=== PATIENT | male | born 1940 | race Caucasian/White ===

== ENCOUNTER 2017-10-21 10:00 | Outpatient (CLI) | payer MEDICARE, SELFPAY | END 2017-10-21 10:01 | PROVIDERS: PCP Internal Medicine; Visit Provider Urology | DX: C61 Malignant neoplasm of prostate (principal); C79.51 Secondary malignant neoplasm of bone | CPT/HCPCS: 96401; 99211; J0897 ==

== ENCOUNTER → 2017-11-18 14:00 | Outpatient (BNVA) | payer MEDICARE, SELFPAY | PROVIDERS: Visit Provider Urology | DX: C61 Malignant neoplasm of prostate (principal); C79.51 Secondary malignant neoplasm of bone | CPT/HCPCS: 96401; J0897 ==

== ENCOUNTER 2017-12-22 10:04 | Outpatient (BNVA) | payer MEDICARE, SELFPAY | END 2017-12-22 10:05 | PROVIDERS: Visit Provider Nurse Practitioner Gerontology | DX: C61 Malignant neoplasm of prostate (principal); C79.51 Secondary malignant neoplasm of bone | CPT/HCPCS: 96401; 96402; 99213; J0897; J9217 ==

== ENCOUNTER → 2018-01-24 10:25 | Outpatient (BNVA) | payer MEDICARE, SELFPAY | PROVIDERS: PCP Internal Medicine; Visit Provider Nurse Practitioner Gerontology | DX: C61 Malignant neoplasm of prostate (principal); C79.51 Secondary malignant neoplasm of bone; R97.20 Elevated prostate specific antigen [PSA] | CPT/HCPCS: 96401; 99213; J0897 ==

== ENCOUNTER 2018-01-24 10:47 | Outpatient (CLI) | payer MEDICARE, SELFPAY ==
[2018-01-25 10:15] LABS: PSA, Diagnostic 4.5 ng/ml (0-6.5)
== END 2018-01-24 11:07 ==
PROVIDERS: PCP Internal Medicine; Visit Provider Nurse Practitioner Gerontology
DX: C61 Malignant neoplasm of prostate (principal); C79.51 Secondary malignant neoplasm of bone; R97.20 Elevated prostate specific antigen [PSA]
CPT/HCPCS: 36415; 96401; 99213; J0897; 84153

== ENCOUNTER → 2018-02-21 11:22 | Outpatient (BNVA) | payer MEDICARE, SELFPAY | PROVIDERS: PCP Internal Medicine; Visit Provider Nurse Practitioner Gerontology | DX: C61 Malignant neoplasm of prostate (principal); C79.51 Secondary malignant neoplasm of bone | CPT/HCPCS: 96401; 99213; J0897 ==

== ENCOUNTER → 2018-03-27 09:14 | Outpatient (BNVA) | payer MEDICARE, SELFPAY | PROVIDERS: PCP Internal Medicine; Visit Provider Nurse Practitioner Gerontology | DX: C61 Malignant neoplasm of prostate (principal); C79.51 Secondary malignant neoplasm of bone | CPT/HCPCS: 96401; 96402; 99213; J0897; J9217 ==

== ENCOUNTER → 2018-04-27 10:15 | Outpatient (BNVA) | payer MEDICARE, SELFPAY | PROVIDERS: PCP Internal Medicine; Visit Provider Nurse Practitioner Gerontology | DX: R69 Illness, unspecified (principal) ==

== ENCOUNTER 2018-04-27 11:27 | Outpatient (CLI) | payer MEDICARE, MEDICAID, SELFPAY ==
[2018-04-27 12:11] LABS: HGB 14.2 g/dL (13.5-17.5); Mean Corpuscular Hemoglobin 29.2 pg (27.0-33.0); Mean Corpuscular Volume 88.3 fL (80-95); Mean Platelet Volume 9.4 fL (8.0-11.0); Platelet Count 226 x1000/uL (130-400); RBC 4.87 m/cumm (4.50-6.00); RBC Distribution Width 14.1 % (11.8-14.1); White Blood Cell Count 5.51 k/cumm (4.4-10.8)
[2018-04-27 12:52] LABS: ALT 81 U/L (12-78); AST 57 U/L (15-37); Albumin 3.4 g/dL (3.4-5.0); Alkaline Phosphatase 75 U/L (46-116); Anion Gap 7.2 mmol/L (3-11); BUN 17 mg/dL (7-18); Bilirubin, Total 0.6 mg/dL (0.2-1.0); CO2 28.8 mmol/L (21.0-32.0); CREATININE 0.77 mg/dL (0.70-1.30); Calcium 8.9 mg/dL (8.5-10.1); Chloride 108 mmol/L (98-107); Glucose 99 mg/dL (70-100); Magnesium 2.1 mg/dL (1.8-2.4); Potassium 4.3 mmol/L (3.5-5.1); Sodium 144 mmol/L (136-145); Total Protein 6.7 g/dL (6.4-8.2)
[2018-04-28 09:09] LABS: PSA, Diagnostic 7.8 ng/ml (0-6.5)
[2018-04-30 15:36] LABS: Testosterone, Free 0.11 ng/dL (2.88-10.5); Testosterone, Total 9.8 ng/dL (240-950)
== END 2018-04-27 11:47 ==
PROVIDERS: PCP Internal Medicine; Visit Provider Urology
DX: C61 Malignant neoplasm of prostate (principal); C79.51 Secondary malignant neoplasm of bone
CPT/HCPCS: 36415; 80053; 84402; 84403; 85027; 99214; 83735; 84153

== ENCOUNTER 2018-05-10 09:04 | Outpatient (CLI) | payer MEDICARE, SELFPAY ==
--- NOTE | 2018-05-10 10:35 | MERGE_ITS ---
*[facility]* *[facility]* [address] [place] [address] Date of study: 05/10/2018 Transthoracic Echocardiography M-mode, complete 2D, complete spectral Doppler, and color Doppler *STUDY CONCLUSIONS* Summary: 1. Left ventricle: The cavity size was normal. Wall thickness was increased in a pattern of moderate LVH. Systolic function was normal. The estimated ejection fraction was 60-65%. Some parameters suggest diastolic dysfunction. There was no evidence of elevated ventricular filling pressure by Doppler parameters. 2. Aortic valve: There was mild regurgitation. 3. Mitral valve: There was mild regurgitation. 4. Left atrium: The atrium was moderately dilated. 5. Right ventricle: The cavity size was normal. Wall thickness was normal. Systolic function was normal. 6. Right atrium: The atrium was moderately dilated. 7. Atrial septum: No defect or patent foramen ovale was identified. 8. Pulmonary arteries: Pulmonary systolic pressure was in the range of 30mm Hg to 40mm Hg. 9. Inferior vena cava: The vessel was patent and normal in size. The respirophasic diameter changes were in the normal range (greater than or equal to 50%), consistent with normal central venous pressure. *PATIENT PRESENTATION* Height: 175.3cm ((69in) ) S/D Pressure: 167 / 59 Weight: 109.8kg ((241.5lb) ) BSA: 2.35m^2 Test start time: 10:40 AM. Test stop time: 11:45 AM. PERFORMING Unknown PERFORMING [facility] CONSULTING Fermin Pickens ORDERING Fermin Pickens REFERRING Fermin Pickens [employer] RT Maricruz (R)(CT), [facility] REFERRING Jerson *PROCEDURE DATA* Procedure information: The patient was identified by two identifiers. This study was interpreted by [facility]. Pertinent images and digital data are archived for permanent storage and are available for subsequent review. No prior study was available for comparison. Study status: Routine. Transthoracic echocardiography. M-mode, complete 2D, complete spectral Doppler, and color Doppler. A Transthoracic Echocardiogram was performed. Scanning was performed from the parasternal, apical, subcostal, and suprasternal notch acoustic windows. Images were obtained using an [id number] cardiac ultrasound machine. Image quality was adequate. Study completion: The patient tolerated the procedure well. *CARDIAC ANATOMY* Left ventricle: The cavity size was normal. Wall thickness was increased in a pattern of moderate LVH. Systolic function was normal. The estimated ejection fraction was 60-65%. The tissue Doppler parameters were abnormal. Some parameters suggest diastolic dysfunction. There was no evidence of elevated ventricular filling pressure by Doppler parameters. Aortic valve: Trileaflet. Doppler: There was no stenosis. There was mild regurgitation. VTI ratio of LVOT to aortic valve: 0.82. Valve area (VTI): 2.6cm^2. Indexed valve area (VTI): 1.1cm^2/m^2. Peak velocity ratio of LVOT to aortic valve: 0.78. Valve area (Vmax): 2.4cm^2. Indexed valve area (Vmax): 1cm^2/m^2. Mean velocity ratio of LVOT to aortic valve: 0.69. Valve area (Vmean): 2.2cm^2. Indexed valve area (Vmean): 0.9cm^2/m^2. Mean gradient (S): 4.8mm Hg. Peak gradient (S): 8.7mm Hg. Aorta: Aortic root: The aortic root was normal in size. Ascending aorta: The ascending aorta was moderately dilated. Mitral valve: Doppler: There was no evidence for stenosis. There was mild regurgitation. Valve area by pressure half-time: 2.8cm^2. Indexed valve area by pressure half-time: 1.2cm^2/m^2. Left atrium: The atrium was moderately dilated. Atrial septum: No defect or patent foramen ovale was identified. Right ventricle: The cavity size was normal. Wall thickness was normal. Systolic function was normal. Pulmonic valve: Doppler: There was no evidence for stenosis. There was trivial regurgitation. Peak gradient (S): 2.8mm Hg. Tricuspid valve: Doppler: There was mild regurgitation. Pulmonary artery: Poorly visualized. Pulmonary systolic pressure was in the range of 30mm Hg to 40mm Hg. Right atrium: The atrium was moderately dilated. Pericardium: There was no pericardial effusion. Systemic veins: Inferior vena cava: Well visualized. The vessel was patent and normal in size. The respirophasic diameter changes were in the normal range (greater than or equal to 50%), consistent with normal central venous pressure. Baseline ECG: Bradycardia. Measurements Left ventricle Value Reference LV ID, ED, PLAX 4.6 cm 3.5 - 6.0 LV ID, ES, PLAX 2.7 cm 2.1 - 4.0 LV PW thickness, ED, PLAX 1.2 cm LV end-diastolic volume, 1-p A2C 128 ml LV ejection fraction, 1-p A2C 73 % LV end-diastolic volume, 1-p A4C 114 ml LV ejection fraction, 1-p A4C 60 % LV e', lateral 0.072 m/sec LV E/e', lateral 9 LV e', medial 0.056 m/sec LV E/e', medial 11 LV e', average 0.064 m/sec LV E/e', average 10 Ventricular septum Value Reference IVS thickness, ED, PLAX 1.4 cm LVOT Value Reference LVOT ID, A-P 2.0 cm LVOT area 3.1 cm^2 LVOT peak velocity, S 1.15 m/sec LVOT mean velocity, S 0.72 m/sec LVOT VTI, S 26.1 cm LVOT peak gradient, S 5.3 mm Hg LVOT mean gradient, S 2.5 mm Hg Stroke volume (SV), LVOT DP 82 ml Stroke index (SV/bsa), LVOT DP 35 ml/m^2 Aortic valve Value Reference Aortic valve peak velocity, S 1.5 m/sec Aortic valve mean velocity, S 1.04 m/sec Aortic valve VTI, S 32.0 cm Aortic mean gradient, S 4.8 mm Hg Aortic peak gradient, S 8.7 mm Hg VTI ratio, LVOT/AV 0.82 Aortic valve area, VTI 2.6 cm^2 Velocity ratio, peak, LVOT/AV 0.78 Aortic valve area, peak velocity 2.4 cm^2 Velocity ratio, mean, LVOT/AV 0.69 Aortic valve area, mean velocity 2.2 cm^2 Aortic valve area/bsa, mean velocity 0.9 cm^2/m^2 Aortic regurg deceleration 150 cm/s^2 Aortic regurg pressure half-time 869 ms Aorta Value Reference Aortic root ID, ED 3.6 cm Ascending aorta ID, A-P, S 4.1 cm Left atrium Value Reference LA ID, A-P, ES 5.2 cm LA ID/bsa, A-P 2.2 cm/m^2 <=2.2 LA area, ES, A4C (H) 32.9 cm^2 8.8 - 23.4 LA volume/bsa, ES, 1-p A4C 63 ml/m^2 LA/aortic root ratio 1.44 Mitral valve Value Reference Mitral E-wave peak velocity 0.62 m/sec Mitral A-wave peak velocity 0.77 m/sec Mitral deceleration time (H) 267 ms 150 - 230 Mitral pressure half-time 77 ms Mitral E/A ratio, peak 0.8 Mitral valve area, PHT, DP 2.8 cm^2 Pulmonary veins Value Reference Pulmonary vein peak velocity, S 0.61 m/sec Pulmonary vein peak velocity, D 0.55 m/sec Pulmonary vein velocity ratio, peak, 1.11 S/D Pulmonary vein A-wave reversal peak 0.35 m/sec velocity Tricuspid valve Value Reference Tricuspid regurg peak velocity 3 m/sec Tricuspid peak RV-RA gradient 36 mm Hg Right atrium Value Reference RA area, ES, A4C (H) 22 cm^2 8.3 - 19.5 Pulmonic valve Value Reference Pulmonic peak gradient, S 2.8 mm Hg Legend: (L) and (H) maia values outside specified reference range. I have personally reviewed the images and have reviewed and edited the reported findings. Electronically signed by Roberto Medley MD 05/10/2018 12:32
== END 2018-05-10 09:24 ==
PROVIDERS: PCP Internal Medicine; Visit Provider Urology
DX: I50.20 Unspecified systolic (congestive) heart failure (principal); I08.0 Rheumatic disorders of both mitral and aortic valves; I25.10 Atherosclerotic heart disease of native coronary artery without angina pectoris; C61 Malignant neoplasm of prostate; C79.51 Secondary malignant neoplasm of bone
CPT/HCPCS: 93306

== ENCOUNTER 2018-05-12 00:19 | Outpatient (CLI) | payer MEDICARE, SELFPAY ==
--- NOTE | 2018-05-12 09:56 | DI.CT_ITS ---
SYMPTOMS/DIAGNOSIS: METASTATIC PROSTATE CA, C61, SECONDARY MALIGNANT NEOPLASM OF BONE, C79.51 CHEST, ABDOMEN AND PELVIS CT: CT examination of the chest, abdomen and pelvis was performed with a bolus infusion of 100 cc of Omnipaque 350 and ingestion of dilute barium. The patient reportedly has a history of bony metastatic disease from prostatic carcinoma. A bone scan was also obtained today. Areas of mixed sclerotic and lytic abnormality in mid thoracic spine extending from inferior endplate of T6 through superior endplate of T9 are consistent with metastatic disease and this area is of increased uptake on current bone scan. Multiple areas of focal sclerosis in ribs and sternum fail to show increased uptake on today's examination, but may represent quiescent metastatic deposits. The lungs appear generally clear, although there is significant breathing artifact. No evidence of pulmonary embolic disease. No thoracic aortic aneurysm or dissection. No mediastinal or hilar adenopathy. No pleural effusion or pleural-based mass. No axillary or supraclavicular adenopathy. Liver and spleen are unremarkable in appearance, as is the pancreas. Gallbladder not definitively identified. No biliary dilatation seen. Abdominal aorta is of normal diameter. Adrenals appear normal bilaterally. Right kidney and ureter appear normal. Left kidney contains a lower pole low attenuation mass-like finding consistent with cyst. No retroperitoneal adenopathy in the abdomen. No significant abdominal wall hernia. The prostate is enlarged and heterogeneous. Urinary bladder shows diverticula consistent with chronic bladder outlet obstruction. No focal bowel pathology identified. CONCLUSION: Findings consistent with bony metastatic disease as noted on bone scan. No additional evidence of remote metastatic disease in a patient with reported history of metastatic prostatic carcinoma.
--- NOTE | 2018-05-12 09:56 | DI.NM_ITS ---
SYMPTOMS/DIAGNOSIS: METASTATIC PROSTATE CA, C61, SECONDARY MALIGNANT NEOPLASM OF BONE, C79.51 WHOLE BODY BONE SCAN: Whole body bone scan was performed with infusion of 23.5 mCi of technetium 99 labelled methylene diphosphonate. The examination is compared with previous bone scan of 10/20/2016 from [facility]. Focus of increased uptake in the left skull appears unchanged. Focus of increased uptake in upper thoracic spine to mid thoracic spine is more prominent. Focus of proximal right rib uptake posteriorly is less prominent on today's examination. Areas of increased uptake in anterior ribs noted on the previous examination are also less prominent on today's study. Areas of increased uptake in the pelvis and left femur are less prominent today. CONCLUSION: Areas of interval increased and decreased uptake in a patient with a history of bony metastasis from prostatic carcinoma.
[2018-05-12] MEDS: Breeza Beverage 473 ML BTL PO ×2 (10:53→10:54)
[2018-05-12] MEDS: Omnipaque 350 MG/ML 50 ML BTL IJ (10:54)
[2018-05-12] MEDS: Omnipaque 350 MG/ML 100 ML BTL IJ (12:54)
== END 2018-05-12 00:39 ==
PROVIDERS: PCP Internal Medicine; Visit Provider Urology
DX: C61 Malignant neoplasm of prostate (principal); C79.51 Secondary malignant neoplasm of bone; N32.0 Bladder-neck obstruction
CPT/HCPCS: 74177; 78306; 71260; J3490; Q9967

== ENCOUNTER → 2018-06-27 13:49 | Outpatient (BNVA) | payer MEDICARE, SELFPAY | PROVIDERS: PCP Internal Medicine; Visit Provider Urology | DX: C61 Malignant neoplasm of prostate (principal); C79.51 Secondary malignant neoplasm of bone | CPT/HCPCS: 96401; 96402; 99212; J0897; J9217 ==

== ENCOUNTER → 2018-07-27 12:51 | Outpatient (BNVA) | payer MEDICARE, SELFPAY | PROVIDERS: PCP Internal Medicine; Visit Provider Nurse Practitioner Gerontology | DX: R69 Illness, unspecified (principal) | CPT/HCPCS: 99213 ==

== ENCOUNTER 2018-07-27 13:16 | Outpatient (CLI) | payer MEDICARE, SELFPAY ==
[2018-07-28 10:12] LABS: PSA, Diagnostic 10.7 ng/ml (0-6.5)
== END 2018-07-27 13:36 ==
PROVIDERS: PCP Internal Medicine; Visit Provider Nurse Practitioner Gerontology
DX: C61 Malignant neoplasm of prostate (principal); C79.51 Secondary malignant neoplasm of bone
CPT/HCPCS: 36415; 96401; 99213; J0897; 84153

== ENCOUNTER → 2018-08-25 15:26 | Outpatient (BNVA) | payer MEDICARE, SELFPAY | PROVIDERS: PCP Internal Medicine; Visit Provider Urology | DX: C61 Malignant neoplasm of prostate (principal); C79.51 Secondary malignant neoplasm of bone | CPT/HCPCS: 96401; 99211; 99212; J0897 ==

== ENCOUNTER → 2018-09-29 10:04 | Outpatient (BNVA) | payer MEDICARE, SELFPAY | PROVIDERS: Visit Provider Urology | DX: C79.51 Secondary malignant neoplasm of bone (principal); C61 Malignant neoplasm of prostate; R97.20 Elevated prostate specific antigen [PSA] | CPT/HCPCS: 96401; 96402; 99211; J0897; J9217 ==

== ENCOUNTER → 2018-11-03 10:01 | Outpatient (BNVA) | payer MEDICARE, SELFPAY | PROVIDERS: Visit Provider Urology | DX: C61 Malignant neoplasm of prostate (principal); C79.51 Secondary malignant neoplasm of bone | CPT/HCPCS: 96401; 99211; J0897 ==

== ENCOUNTER → 2018-12-08 13:46 | Outpatient (BNVA) | payer MEDICARE, SELFPAY | PROVIDERS: Visit Provider Urology | DX: C79.51 Secondary malignant neoplasm of bone (principal); C61 Malignant neoplasm of prostate | CPT/HCPCS: 96401; 99211; J0897; 96372 ==

== ENCOUNTER → 2019-01-09 09:36 | Outpatient (BNVA) | payer MEDICARE, SELFPAY | PROVIDERS: Visit Provider Urology | DX: C61 Malignant neoplasm of prostate (principal); C79.51 Secondary malignant neoplasm of bone | CPT/HCPCS: 96402; 99212; J0897; J9217; 96372 ==

== ENCOUNTER → 2019-02-06 10:17 | Outpatient (BNVA) | payer MEDICARE, SELFPAY | PROVIDERS: Visit Provider Nurse Practitioner Gerontology | DX: C79.51 Secondary malignant neoplasm of bone (principal); C61 Malignant neoplasm of prostate | CPT/HCPCS: 99213; J0897; 96372 ==

== ENCOUNTER → 2019-03-07 10:26 | Outpatient (BNVA) | payer MEDICARE, SELFPAY | PROVIDERS: Visit Provider Nurse Practitioner Gerontology | DX: C61 Malignant neoplasm of prostate (principal); C79.51 Secondary malignant neoplasm of bone | CPT/HCPCS: 99213; J0897; 96372 ==

== ENCOUNTER → 2019-04-10 10:28 | Outpatient (BNVA) | payer MEDICARE, SELFPAY | PROVIDERS: Visit Provider Nurse Practitioner Gerontology | DX: C79.51 Secondary malignant neoplasm of bone (principal) | CPT/HCPCS: 96402; 99213; J0897; J9217; 96372 ==

== ENCOUNTER → 2019-05-14 10:30 | Outpatient (BNVA) | payer MEDICARE, SELFPAY | PROVIDERS: Visit Provider Nurse Practitioner Gerontology | DX: C61 Malignant neoplasm of prostate (principal); C79.51 Secondary malignant neoplasm of bone | CPT/HCPCS: 99213; J0897; 96372 ==

== ENCOUNTER → 2019-06-19 10:18 | Outpatient (BNVA) | payer MEDICARE, SELFPAY | PROVIDERS: Visit Provider Nurse Practitioner Gerontology | DX: C61 Malignant neoplasm of prostate (principal); C79.51 Secondary malignant neoplasm of bone | CPT/HCPCS: 99213; J0897; 96372 ==

== ENCOUNTER → 2019-07-17 08:54 | Outpatient (BNVA) | payer MEDICARE, SELFPAY | PROVIDERS: Visit Provider Urology | DX: R31.0 Gross hematuria (principal); C61 Malignant neoplasm of prostate | CPT/HCPCS: 81003; 99212; 99213 ==

== ENCOUNTER 2019-07-17 10:12 | Outpatient (REF) | payer MEDICARE, SELFPAY | END 2019-07-17 10:32 | LOC: LBN 10:12 | PROVIDERS: Visit Provider Urology | DX: R31.9 Hematuria, unspecified (principal) | CPT/HCPCS: 87086 ==

== ENCOUNTER → 2019-07-24 13:48 | Outpatient (BNVA) | payer MEDICARE, SELFPAY | PROVIDERS: Visit Provider Nurse Practitioner Gerontology | DX: C61 Malignant neoplasm of prostate (principal); C79.51 Secondary malignant neoplasm of bone | CPT/HCPCS: 81003; 96402; 99213; J0897; J9217; 96372 ==

== ENCOUNTER → 2019-08-24 15:35 | Outpatient (BNVA) | payer MEDICARE, SELFPAY | PROVIDERS: Visit Provider Urology | DX: C61 Malignant neoplasm of prostate (principal); C79.51 Secondary malignant neoplasm of bone | CPT/HCPCS: 99212; J0897; 96372 ==

== ENCOUNTER → 2019-09-25 14:55 | Outpatient (BNVA) | payer MEDICARE, SELFPAY | PROVIDERS: Visit Provider Urology | DX: C61 Malignant neoplasm of prostate (principal); C79.51 Secondary malignant neoplasm of bone; R31.0 Gross hematuria | CPT/HCPCS: 99213; J0897; 96372 ==

== ENCOUNTER 2019-10-01 08:22 | Outpatient (CLI) | payer MEDICARE, SELFPAY ==
[2019-10-03 14:53] LABS: COVID-19 RT-PCR Result NEGATIVE (Negative)
== END 2019-10-01 08:42 ==
PROVIDERS: PCP Family Medicine; Visit Provider Urology
DX: Z03.818 Encounter for observation for suspected exposure to other biological agents ruled out (principal); Z01.818 Encounter for other preprocedural examination
CPT/HCPCS: U0003

== ENCOUNTER 2019-10-04 07:57 | Day surgery (SDC) | payer MEDICARE, SELFPAY ==
[2019-10-04] VITALS (8 sets, daily range): BP systolic 154–169; BP diastolic 62–81; PULSE 51–58; RESP 16–22; TEMP 36–36.6; O2SAT 94–100
--- NOTE | 2019-10-04 08:30 | W.PM.HP.N ---
Date of service: 10/04/19 Time of Service: 08:30 Assessment and Plan Assessment and plan (1) Gross hematuria: Status: Acute Assessment and plan: We will plan to do cystoscopy and biopsy/cauterize/resect any suspicious area in the bladder or prostate. He understands that he may need to remain in the hospital overnight for bladder irrigation. History of Present Illness History of Present Illness Chief Complaint: Gross hematuria Narrative: This is an 79-year-old gentleman who has a history of metastatic adenocarcinoma of the prostate. In the past, he had urinary retention and required a transurethral resection of the prostate. He is now able to void, but had been having gross painless hematuria with clots. He has not seen blood in the past 4 days (ever since he stopped his aspirin) His renal ultrasound showed no worrisome upper tract disease. He presents for cystoscopy with resection or fulguration of any concerning lower urinary tract areas. He has not had any dysuria or episodes of retention. Review of Systems Narrative: No fevers or chills No vision change or dysphasia No diabetes or thyroid dysfunction No shortness of breath, cough or hemoptysis No chest pain or palpitations No nausea, vomiting, hepatitis, ulcers, jaundice, diarrhea or constipation No seizures, strokes or peripheral neuropathy No bleeding disorders No gout [facility] Medical History (Updated 10/04/19 @ 07:21 by Ana María Luo) Gross hematuria (Acute) Metastatic cancer to bone (Acute) Prostate CA (Chronic) Surgical History (Updated 10/04/19 @ 07:20 by Ana María Luo) History of cystoscopy (Acute) History of laparotomy (Acute) History of thoracotomy (Acute) S/P TURP (Acute) Social History Smoking/Tobacco Use Status: Never Alcohol Intake: never Drug use: Never Substance use type: does not use Additional Social history: answering questions per pt. doesnt speak serbian Meds Home Medications and Allergies Home Medications Medication Instructions Recorded Confirmed Type atorvastatin [Lipitor] 80 mg PO DAILY tab-cap 10/28/16 10/04/19 History lisinopril 40 mg PO DAILY tab-cap 10/28/16 10/04/19 History metoprolol succinate 100 mg PO DAILY tab-cap 10/28/16 10/04/19 History Lupron Depot (3 month) 22.5 mg IM 3 months 11/09/16 10/02/19 History calcium carbonate 600 mg PO DAILY 12/08/16 10/04/19 History nitroglycerin 0.4 mg SUBLINGUAL Q5 MIN PRN X3 PRN 12/08/16 10/02/19 History hydrocodone-acetaminophen 1 - 2 tab PO Q4H PRN PRN #20 tab 12/10/16 10/02/19 Rx levofloxacin 500 mg PO DAILY #5 tab 12/20/16 10/04/19 Rx meclizine [Motion Sickness Relief] 25 mg PO QID #20 tab-cap MDD 4 06/10/17 10/02/19 Rx tamsulosin 0.4 mg capsule 0.4 mg PO DAILY #90 tab-cap 03/15/19 10/04/19 Rx sulfamethoxazole 800 1 tab PO Q12H #14 tab 07/17/19 10/04/19 Rx mg-trimethoprim 160 mg tablet potassium chloride 20 meq PO DAILY 10/02/19 10/04/19 History aspirin 325 mg PO DAILY 10/03/19 10/03/19 History Allergies Allergy/AdvReac Type Severity Reaction Status Date / Time No Known Allergies Allergy Verified 10/04/19 08:14 Exam Const General: cooperative, comfortable and not in acute distress Neck Neck: supple Resp Effort & Inspection: normal respiratory effort Auscultation: clear to auscultation bilaterally Cardio Rate: regular rate Rhythm: regular rhythm GI Inspection: normal to inspection Palpation: soft and no masses Neuro General: patient alert, patient awake, patient oriented x3 and other (primarily speaks Burkinan (daughter acts as translater today)) Results Last Vital Signs Temp 36.4 C L 10/04/19 08:05 Pulse 55 L 10/04/19 08:05 Resp 18 10/04/19 08:05 BP 162/81 H 10/04/19 08:05 Pulse Ox 97 10/04/19 08:05 COVID-19 Screening Have you,or household,traveled outside [place] in last 14 days?: TRAVEL NO Had IN PERSON contact w/suspected or confirmed C-19 person: No
[2019-10-04] MEDS: Lactated Ringers 1,000 ML 80 ML IV (08:58)
[2019-10-04] MEDS: ceFAZolin 2 GM/50 ML BAG IVPB (09:17)
[2019-10-04] MEDS: Lidocaine 2% Jelly 6 ML SYR (09:40)
--- NOTE | 2019-10-04 10:06 | W.PM.DSUDISC ---
Discharge Plan Disposition Patient Disposition: HOME Condition: Stable Discharge Details Reason For Visit: Hematuria Attending Provider: Fermin Pickens Primary Care Provider: Gio Oviedo Home Meds and New Rx's Prescriptions: Discontinued sulfamethoxazole-trimethoprim 800-160 mg tablet 1 tab PO Q12H Qty: 14 RF: 0 levofloxacin 500 MG tablet 500 mg PO DAILY Qty: 5 RF: 0 No Action atorvastatin [Lipitor] 40 MG tablet 80 mg PO DAILY RF: 0 metoprolol succinate 100 MG tablet extended release 24 hr 100 mg PO DAILY RF: 0 lisinopril 40 MG tablet 40 mg PO DAILY RF: 0 Lupron Depot (3 month) 22.5 MG syringe kit 22.5 mg IM 3 months RF: 0 meclizine [Motion Sickness Relief(mecliz)] 25 MG tablet 25 mg PO QID MDD 4 Qty: 20 RF: 0 tamsulosin 0.4 mg capsule 0.4 mg PO DAILY Qty: 90 RF: 4 calcium carbonate 600 MG tablet 600 mg PO DAILY RF: 0 nitroglycerin 0.4 MG tablet, sublingual 0.4 mg Sublingual Q5 MIN PRN X3 PRNRF: 0 hydrocodone-acetaminophen 1 TAB tablet 1 - 2 tab PO Q4H PRN PRN (Reason: Pain) Qty: 20 RF: 0 potassium chloride 20 mEq/15 mL liquid 20 meq PO DAILY RF: 0 aspirin 325 mg Tablet 325 mg PO DAILY RF: 0 Discharge Instructions Additional Instructions: Keep scheduled appointment for next injection Stay off aspirin until Tuesday10/08/2019 Activity:: Activity as Tolerated Shower/Bathe:: 24 hours Diet:: As Tolerated Discharge Orders Discharge Orders: Discharge Order (Routine); Ordered 10/04/19 Ordered By: Fermin Pickens DS: Diagnosis Discharge Diagnosis (1) Gross hematuria: Status: Acute
--- NOTE | 2019-10-04 10:12 | W.PM.OP ---
Date of service: 10/04/19 Time of Service: 10:12 Operative Note Operative Note DATE OF PROCEDURE: 10/04/19 PRE-OP DIAGNOSIS: Gross hematuria POST-OP DIAGNOSIS: same PROCEDURE: Cystoscopy with fulguration of prostate mucosa SURGEON: Fermin Pickens ANESTHESIA: other (General) ESTIMATED BLOOD LOSS: 25 PATHOLOGY: none sent Patient was transported to: PACU Indications: This is an 79-year-old gentleman who has a history of metastatic prostate cancer. He is on androgen deprivation therapy. He has had gross hematuria in the past 2 weeks, but has seen no bleeding in the past 4 days. He has had a normal renal ultrasound. He presents for cystoscopy to evaluate his lower urinary tract. Findings: No active bleeding. Prominent blood vessels and bullous edema on prostate mucosa Procedure Description: The patient was brought to the operating room on 10/04/2019. He was given preoperative IV antibiotics. After successful induction of general anesthesia, he was placed in the dorsal lithotomy position. His genitalia was prepped and draped. 2% Xylocaine jelly was instilled into the urethra to act as a local anesthetic. A 22 Setswana rigid cystoscope was passed through the urethra into the bladder. The urethra and bladder were inspected with a 30 degree lens. The pendulous, bulbous and membranous urethra was appeared normal with no strictures. No bleeding or masses were seen along this portion of the urethra. The prostatic urethra showed signs of previous TURP. There was some bullous edema at the bladder neck as well as some papillary changes at the verumontanum. No active bleeding was seen, but there were some prominent blood vessels present on the prostatic mucosa. The bladder neck was then entered and the bladder mucosa was inspected. The bladder was moderately trabeculated with a few diverticuli. There was a small blood clot within 1 of the diverticuli, but no papillary or nodular bladder masses were identified. No bladder stones were seen. Based on the cystoscopy, it appeared that the most likely source of bleeding was the prostatic mucosa. I removed the cystoscope and passed a 24 Setswana resectoscope sheath through the urethra into the bladder. I used bipolar cautery and a ball electrode to cauterize the prostatic mucosa. No vaporization energy was used. At the completion of the procedure, no active bleeding was seen even when the irrigation fluid was turned off. We then elected not to place a Sykes catheter and not to run continuous bladder irrigation. The bladder was filled with irrigant. The resectoscope was removed. He was taken to the recovery room in stable condition.
== END 2019-10-04 12:10 | disposition home or self-care (01) ==
PROVIDERS: PCP Family Medicine; Visit Provider Urology
PROC: 0TBB8ZZ Excision of Bladder, Via Natural or Artificial Opening Endoscopic (ICD-10-PCS; CPT 52214; principal; 2019-10-04 09:00)
DX: R31.0 Gross hematuria (principal); Z90.79 Acquired absence of other genital organ(s); N32.89 Other specified disorders of bladder; N32.3 Diverticulum of bladder
CPT/HCPCS: 52214; NC; J0690; J1100; J2405

== ENCOUNTER → 2019-10-29 14:52 | Outpatient (BNVA) | payer MEDICARE, SELFPAY | PROVIDERS: PCP Family Medicine; Referring Provider Family Medicine; Visit Provider Nurse Practitioner Gerontology | DX: C61 Malignant neoplasm of prostate (principal); C79.51 Secondary malignant neoplasm of bone; R31.0 Gross hematuria | CPT/HCPCS: 96402; 99213; J0897; J9217; 96372 ==

== ENCOUNTER → 2019-12-04 11:17 | Outpatient (BNVA) | payer MEDICARE, SELFPAY | PROVIDERS: PCP Family Medicine; Referring Provider Family Medicine; Visit Provider Nurse Practitioner Gerontology | DX: C61 Malignant neoplasm of prostate (principal); C79.51 Secondary malignant neoplasm of bone | CPT/HCPCS: 99213; J0897; 96372 ==

== ENCOUNTER → 2020-01-07 13:22 | Outpatient (BNVA) | payer MEDICARE, SELFPAY | PROVIDERS: PCP Family Medicine; Referring Provider Family Medicine; Visit Provider Nurse Practitioner Gerontology | DX: C61 Malignant neoplasm of prostate (principal); C79.51 Secondary malignant neoplasm of bone | CPT/HCPCS: 99213; J0897; 96372 ==

== ENCOUNTER → 2020-02-11 08:53 | Outpatient (BNVA) | payer MEDICARE, SELFPAY | PROVIDERS: PCP Family Medicine; Referring Provider Family Medicine; Visit Provider Nurse Practitioner Gerontology | DX: C61 Malignant neoplasm of prostate (principal); C79.51 Secondary malignant neoplasm of bone | CPT/HCPCS: 96402; 99213; J0897; J9217; 96372 ==

== ENCOUNTER → 2020-03-17 10:40 | Outpatient (BNVA) | payer MEDICARE, SELFPAY | PROVIDERS: PCP Family Medicine; Referring Provider Family Medicine; Visit Provider Nurse Practitioner Gerontology | DX: C79.51 Secondary malignant neoplasm of bone (principal); C61 Malignant neoplasm of prostate | CPT/HCPCS: 99213; J0897; 96372 ==

== ENCOUNTER → 2020-04-17 10:33 | Outpatient (BNVA) | payer MEDICARE, SELFPAY | PROVIDERS: PCP Family Medicine; Referring Provider Family Medicine; Visit Provider Nurse Practitioner Gerontology | DX: C61 Malignant neoplasm of prostate (principal); C79.51 Secondary malignant neoplasm of bone | CPT/HCPCS: J0897; 96372 ==

== ENCOUNTER → 2020-05-19 10:38 | Outpatient (BNVA) | payer MEDICARE, SELFPAY | PROVIDERS: PCP Family Medicine; Referring Provider Family Medicine; Visit Provider Nurse Practitioner Gerontology | DX: C61 Malignant neoplasm of prostate (principal); C79.51 Secondary malignant neoplasm of bone | CPT/HCPCS: 96402; J0897; J9217; 96372 ==

== ENCOUNTER → 2020-06-19 10:11 | Outpatient (BNVA) | payer MEDICARE, SELFPAY | PROVIDERS: PCP Family Medicine; Referring Provider Family Medicine; Visit Provider Nurse Practitioner Gerontology | DX: C61 Malignant neoplasm of prostate (principal); C79.51 Secondary malignant neoplasm of bone; H61.23 Impacted cerumen, bilateral | CPT/HCPCS: 69209; 99214; J0897; 96372 ==

== ENCOUNTER → 2020-07-21 13:47 | Outpatient (BNVA) | payer MEDICARE, SELFPAY | PROVIDERS: PCP Family Medicine; Referring Provider Family Medicine; Visit Provider Nurse Practitioner Gerontology | DX: C61 Malignant neoplasm of prostate (principal); C79.51 Secondary malignant neoplasm of bone | CPT/HCPCS: J0897; 96372 ==

== ENCOUNTER → 2020-08-21 10:06 | Outpatient (BNVA) | payer MEDICARE, SELFPAY | PROVIDERS: PCP Family Medicine; Referring Provider Family Medicine; Visit Provider Nurse Practitioner Gerontology | DX: C61 Malignant neoplasm of prostate (principal); C79.51 Secondary malignant neoplasm of bone | CPT/HCPCS: 96402; J0897; J9217; 96372 ==

== ENCOUNTER → 2020-09-29 09:58 | Outpatient (BNVA) | payer MEDICARE, SELFPAY | PROVIDERS: PCP Family Medicine; Referring Provider Family Medicine; Visit Provider Nurse Practitioner Gerontology | DX: C61 Malignant neoplasm of prostate (principal); C79.51 Secondary malignant neoplasm of bone | CPT/HCPCS: J0897; 96372 ==

== ENCOUNTER → 2020-11-03 09:56 | Outpatient (BNVA) | payer MEDICARE, SELFPAY | PROVIDERS: PCP Family Medicine; Referring Provider Family Medicine; Visit Provider Nurse Practitioner Gerontology | DX: C61 Malignant neoplasm of prostate (principal); C79.51 Secondary malignant neoplasm of bone | CPT/HCPCS: J0897; 96372 ==

== ENCOUNTER → 2020-12-04 10:01 | Outpatient (BNVA) | payer MEDICARE, SELFPAY | PROVIDERS: PCP Family Medicine; Referring Provider Family Medicine; Visit Provider Nurse Practitioner Gerontology | DX: C61 Malignant neoplasm of prostate (principal); C79.51 Secondary malignant neoplasm of bone | CPT/HCPCS: 96402; J0897; 96372; J9217 ==

== ENCOUNTER → 2021-01-13 12:55 | Outpatient (BNVA) | payer MEDICARE, SELFPAY | PROVIDERS: PCP Family Medicine; Referring Provider Family Medicine; Visit Provider Nurse Practitioner Gerontology | DX: C61 Malignant neoplasm of prostate (principal); C79.51 Secondary malignant neoplasm of bone | CPT/HCPCS: J0897; 96372 ==

== ENCOUNTER → 2021-02-18 09:45 | Outpatient (BNVA) | payer MEDICARE, SELFPAY | PROVIDERS: PCP Family Medicine; Referring Provider Family Medicine; Visit Provider Nurse Practitioner Gerontology | DX: C61 Malignant neoplasm of prostate (principal); C79.51 Secondary malignant neoplasm of bone | CPT/HCPCS: J0897; 96372 ==

== ENCOUNTER → 2021-03-23 12:49 | Outpatient (BNVA) | payer MEDICARE, SELFPAY | PROVIDERS: PCP Family Medicine; Referring Provider Family Medicine; Visit Provider Nurse Practitioner Gerontology | DX: C61 Malignant neoplasm of prostate (principal); C79.51 Secondary malignant neoplasm of bone | CPT/HCPCS: 96402; J0897; 96372; J9217 ==